=== PATIENT | female | born 1950 | race Caucasian/White ===

== ENCOUNTER 2016-12-03 15:48 | Inpatient (IN) | payer OTHER, MEDICARE ==
[~2016-12-03] VITALS: Ht 165.1 cm; Wt 81.6 kg
[~2016-12-03 15:48] MED LIST: CARA1SUS3 PO; CHOL50006; FLUT1SPR5 EACH NARE; LIDO2SOL11; MONT10TA2 PO; SIMP0.9A EACH NARE; SYNT112T PO; VITA100021 SL; VITA500T4 PO
[2016-12-04] MEDS ORDERED: ONDANSETRON HCL 4 MG/2 ML VIAL IV PUSH ONE (09:48)
[2016-12-04] MEDS ORDERED: PROPOFOL 200 MG/20 ML AMP IV ONE (09:48)
[2016-12-04] MEDS ORDERED: LACTATED RINGER'S 1000 ML INJ 3,000 ML IV ONE (09:48)
[2016-12-04 10:20] VITALS: BP 164/80; PULSE 84; RESP 20; TEMP 98; O2SAT 97
[2016-12-04] MEDS ORDERED: ACETAMINOPHEN 1000 MG/100 ML VIAL IV SCH (10:45)
[2016-12-04] MEDS ORDERED: METOPROLOL TARTRATE 25 MG TAB PO PRN (10:45)
[2016-12-04] MEDS ORDERED: LACTATED RINGER'S 1000 ML IV SCH (10:45)
[2016-12-04] MEDS ORDERED: ceFAZolin 2 GM PREMIX 50 ML IV SCH (10:45)
[2016-12-04] MEDS ORDERED: APREPITANT 40 MG CAP PO SCH (10:45)
[2016-12-04] MEDS ORDERED: metroNIDAZOLE 500 MG INJ 100 ML IV SCH (10:45)
[2016-12-04] MEDS ORDERED: ONDANSETRON HCL 4 MG/2 ML VIAL IV PUSH SCH (10:45)
[2016-12-04] MEDS ORDERED: SODIUM CHLORID 0.9% 500 ML IV SCH (10:45)
[2016-12-04] MEDS ORDERED: INSULIN HUMAN REGULAR 1,000 UNITS/10 ML VIAL SQ PRN (10:45)
[2016-12-04] MEDS ORDERED: BUPIVACAINE/EPINEPHRINE 0.25% PF 30 ML VIAL ONE (17:42)
[2016-12-04] MEDS ORDERED: DICLOFENAC SODIUM 37.5 MG/ML VIAL IV PUSH ONE (19:48)
[2016-12-04] MEDS ORDERED: NALOXONE HCL 0.4 MG/ML AMP IV PRN (20:00)
[2016-12-04] MEDS ORDERED: SODIUM CHLORIDE 0.9% FLUSH 5 ML FLUSH IVF PRN (20:00)
[2016-12-04] MEDS ORDERED: Post-op Orders (for Pharmacy) MISC XX ONE (20:00)
[2016-12-04] MEDS ORDERED: MORPHINE SULFATE 30 MG/30 ML PCA IV SCH (20:00)
[2016-12-04] MEDS ORDERED: DO NOT ADM ANY ANTICOAGULANT DRUGS XX PRN (20:14)
[2016-12-04] MEDS ORDERED: fentaNYL CITRATE 250 MCG/5 ML AMP ONE (20:25)
[2016-12-04] MEDS ORDERED: MORPHINE SULFATE 8 MG/ML INJ ONE (20:38)
[2016-12-04] MEDS ORDERED: *RESP: ALBUTEROL 2.5 MG/3 ML NEB (PRN) PERIprocedural Use ONLY NEB ONE (20:43)
[2016-12-04] MEDS: SODIUM CHLORIDE 0.9% FLUSH 5 ML FLUSH IVF SCH (21:00)
[2016-12-04] MEDS: metroNIDAZOLE 500 MG INJ 100 ML IV SCH (22:40)
[2016-12-04] MEDS: ONDANSETRON HCL 4 MG/2 ML VIAL IV PRN (23:37)
[2016-12-04] MEDS: PCA - TOTAL MG MORPHINE DELIVERED PER SHIFT SCH (23:52)
[2016-12-04] MEDS: SODIUM CHLOR 0.9% 1000 ML INJ 1,000 ML IV SCH (23:52)
[2016-12-05] VITALS (7 sets, daily range): BP systolic 112–143; BP diastolic 53–65; PULSE 61–77; RESP 14–20; TEMP 95.8–98.6; O2SAT 91–97
[2016-12-05] MEDS: ONDANSETRON HCL 4 MG/2 ML VIAL IV PRN ×2 (02:58→08:32)
[2016-12-05] MEDS: LEVOTHYROXINE SODIUM 112 MCG TAB PO SCH (04:54)
[2016-12-05] MEDS: SODIUM CHLOR 0.9% 1000 ML INJ 1,000 ML IV SCH ×3 (04:56→22:15)
[2016-12-05] MEDS: PCA - TOTAL MG MORPHINE DELIVERED PER SHIFT SCH (05:38)
[2016-12-05] MEDS: metroNIDAZOLE 500 MG INJ 100 ML IV SCH ×2 (06:00→13:57)
[2016-12-05] MEDS: SODIUM CHLORIDE 0.9% FLUSH 5 ML FLUSH IVF SCH ×2 (08:32→20:57)
[2016-12-05] MEDS ORDERED: SCOPOLAMINE 1.5 MG PATCH TD SCH (15:00)
--- NOTE | 2016-12-05 15:18 | HHI.PR ---
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
[2016-12-05] MEDS: ACETAMINOPHEN 325MG/HYDROcodone 7.5MG/15ML UDC PO PRN ×2 (15:22→20:56)
[2016-12-05] MEDS: ENOXAPARIN SODIUM 30 MG/0.3 ML SYRINGE SQ SCH (20:57)
[2016-12-06] VITALS: BP 119/59; PULSE 71; RESP 18; TEMP 97.3; O2SAT 94
[2016-12-06] MEDS: ACETAMINOPHEN 325MG/HYDROcodone 7.5MG/15ML UDC PO PRN ×4 (03:03→23:01)
[2016-12-06] MEDS: LEVOTHYROXINE SODIUM 112 MCG TAB PO SCH (05:29)
[2016-12-06] MEDS: SODIUM CHLORIDE 0.9% FLUSH 5 ML FLUSH IVF SCH ×2 (07:47→20:15)
[2016-12-06 08:00] VITALS: BP 116/65; PULSE 66; RESP 20; TEMP 96; O2SAT 95
[2016-12-06] MEDS: SODIUM CHLOR 0.9% 1000 ML INJ 1,000 ML IV SCH ×2 (11:57→20:15)
[2016-12-06 12:00] VITALS: BP 134/63; PULSE 72; RESP 16; TEMP 97.4; O2SAT 93
--- NOTE | 2016-12-06 15:03 | RADRPT ---
EXAM DATE/TIME: 12/06/2016 13:15 [facility] COMPARISON: No previous studies available for comparison. INDICATIONS: Short of breath & right upper quadrant pain. Post hiatal hernia repair surgery. MEDICAL HISTORY: Hiatal hernia. Gastroesophageal reflux disease. Hypothyroidism. Arthritis. SURGICAL HISTORY: Tonsillectomy. Hysterectomy. ENCOUNTER: Subsequent ACUITY: 2 days PAIN SCORE: 9/10 LOCATION: Chest FINDINGS: Extensive subcutaneous emphysema is present. Trace free air is present. There is minimal mediastina l air present. There is no alveolar consolidation. There is a trace pneumothorax on the left. Heart and pulmonary vascularity are normal. CONCLUSION: Abnormal chest. There is trace pneumothorax on the left with extensive subcutaneous air with trace a ir in diaphragm. Sami Jean MD FACR on December 06, 2016 at 13:56 Board Certified Radiologist. This report was verified electronically.
--- NOTE | 2016-12-06 15:24 | MP ---
cc: SHELBY MCKAY DATE OF SURGERY: 12/04/2016. PREOPERATIVE DIAGNOSIS: 1. Gastroesophageal reflux unresponsive to medical management. 2. Hiatal hernia. POSTOPERATIVE DIAGNOSIS: 1. Gastroesophageal reflux disease unresponsive to medical management. 2. Hiatal hernia. OPERATION: Robot-assisted laparoscopic repair of hiatal hernia with 270-degree fundoplication. SURGEON: Shelby Mckay MD. AIRPLANE AND ENGINE INSPECTOR: Jose Carlos Fair MD. ANESTHESIA: General endotracheal anesthesia. ESTIMATED BLOOD LOSS: Less than 50 cc. FINDINGS: Hiatal hernia. SPECIMENS: None. COMPLICATIONS: None. DESCRIPTION OF THE PROCEDURE IN DETAIL: The patient was brought to the operating room and placed on the operating room table in the supine position. Bilateral sequential inflation devices were placed on the lower extremities. General anesthesia was instituted. A Neal catheter was placed. Antibiotics initiated. The abdomen was prepped and draped sterilely. A 5 mm port was [id number] distal to the xiphoid just to the left of the midline. A 5 mm left upper quadrant port was placed. A robotic 8 mm left upper quadrant port, a robotic 8 mm right upper quadrant and a 5 mm right upper quadrant port was placed. The 5 mm epigastric port was switched out to a 12 mm port. Prior to placement of all ports, the skin and peritoneum were anesthetized with 0.25% Marcaine with epinephrine. The patient was then placed in reverse Trendelenburg position. The Zulema-Flex retractor was placed. The left lobe of the liver was retracted. The abdominal cavity was inspected with findings as above. Seven #0 silk sutures were placed into the upper abdomen as well as a [place] drain and Ray-Belia gauze. At this point, the laparoscopic tower was removed from the patient's bedside. The robot was then docked at the patient's bedside. I then broke scrub and went to the console. Attention was next focused on the patient's right. The hepatogastric ligament was opened. The right moni of the diaphragm was identified. It was dissected inferiorly from right to left. The Angle of His was then taken down. The left moni of the diaphragm was dissected inferiorly. The graspers were then placed from right to left. A [place] drain was then brought around the GE junction which was then retracted into the abdominal cavity. The moni of the diaphragm was then further dissected anteriorly and posteriorly. The distal esophagus was dissected in the mediastinum and brought into the abdominal cavity. The vasculature on the greater curve of the stomach was from the GE junction for a third of the distance of the greater curve of the stomach. Attention was then focused back on the crura of the diaphragm. The left and right vagus nerve was identified and preserved during the dissection. The hernia sac was excised. The moni of the diaphragm was approximated with #0 silk suture. Three interrupted [id number] stitches were placed inferiorly. The diaphragm came together without tension. A fundoplication was then created in the greater curvature of the stomach to the patient's right side around the lower esophagus the GE junction was created. The posterior stitch was placed to the diaphragm on the right side superiorly at the ten o'clock position. A stitch was placed from the esophagus to the crura of the diaphragm and to the stomach. Three additional interrupted stitches were placed from the esophagus to the stomach. On the left side of the esophagus, a one o'clock stitch was placed to the crura esophagus and the fundus of the stomach. Three additional interrupted stitches were placed to create a 270 degree wrap. The operative field was inspected. Hemostasis was assured. The robot was then undocked from the patient. The laparoscopic tower connected. The needles were removed from the abdominal cavity as well as the [place] and Ray-Belia gauze. The Zulema-Flex retractor was removed. The 10 mm port sites were approximated with #0 Vicryl suture using a fascial closure device. The C02 was then released. All ports were removed. All skin incisions were closed with 4-0 Monocryl. The abdominal wall was cleaned and a sterile dressing was placed. The patient was awakened and taken to the recovery room. All instruments and sponge and needle counts were reported as correct at the end of the procedure. MD ASHLEY Jaimes/ALICE /2:56 PM /3:09 PM MARIO
--- NOTE | 2016-12-06 15:28 | HHI.PR ---
Subjective Subjective Notes pt c/o pain abd Sob no chest pain Objective Vitals/I&O Vital Signs Date Time Temp Pulse Resp B/P Pulse Ox O2 Delivery O2 Flow Rate FiO2 12/06/16 12:00 97.4 72 16 134/63 93 12/05/16 07:50 21 12/04/16 23:35 Nasal Cannula 3 Abdomen: Post-op tenderness Extremities: Perfused Narrative Exam chest neck crepitus Wound Wound : Wound Location: Abdomen Appearance: Clean & Dry A/P Assessment and Plan S/P lap partial fundoplication with hiatal hernia repair POD#2 Sub Q emphysema better will check CXR advance diet to full liquids Delta Slade MD Dec 06, 2016 15:28
[2016-12-06 16:00] VITALS: BP 153/77; PULSE 79; RESP 16; TEMP 96.9; O2SAT 92
[2016-12-06 20:00] VITALS: BP 130/75; PULSE 79; RESP 20; TEMP 98.2; O2SAT 94
[2016-12-06] MEDS: ENOXAPARIN SODIUM 30 MG/0.3 ML SYRINGE SQ SCH (20:15)
[2016-12-07] VITALS: BP 120/66; PULSE 80; RESP 20; TEMP 98.1; O2SAT 93
[2016-12-07] MEDS: LEVOTHYROXINE SODIUM 112 MCG TAB PO SCH (05:55)
[2016-12-07] MEDS: ACETAMINOPHEN 325MG/HYDROcodone 7.5MG/15ML UDC PO PRN (05:55)
[2016-12-07] MEDS: SODIUM CHLOR 0.9% 1000 ML INJ 1,000 ML IV SCH (05:57)
--- NOTE | 2016-12-07 06:52 | RADRPT ---
EXAM DATE/TIME: 12/07/2016 05:59 [facility] COMPARISON: CHEST PA & LAT, December 06, 2016, 13:15. INDICATIONS : Shortness of breath. MEDICAL HISTORY : None. SURGICAL HISTORY : None. ENCOUNTER: Subsequent ACUITY: 2 days PAIN SCORE: Non-responsive. LOCATION: Bilateral chest FINDINGS: The lungs are symmetrically aerated. Patchy small areas of infiltrate in the lateral left lower lung and medial right lower lung similar to prior. The heart is normal in size. Again noted is subcutan eous emphysema in the supraclavicular region and about both breasts. CONCLUSION: Stable appearance to the patchy bilateral lower lung infiltrates and diffuse bilateral subcutaneous e mphysema. Troy Duong MD on December 07, 2016 at 6:50 Board Certified Radiologist. This report was verified electronically.
[2016-12-07 08:00] VITALS: BP 129/62; PULSE 86; RESP 17; TEMP 97.9; O2SAT 93
[2016-12-07] MEDS: SODIUM CHLORIDE 0.9% FLUSH 5 ML FLUSH IVF SCH (08:32)
[2016-12-07 12:00] VITALS: BP 127/67; PULSE 82; RESP 18; TEMP 98.3; O2SAT 94
--- NOTE | 2016-12-07 12:21 | HHI.DS ---
Discharge Summary Admission Date Dec 04, 2016 at 09:33 Discharge Date: Dec 07, 2016 Admitting Diagnosis (1) Hiatal hernia with GERD Diagnosis: Principal Procedures Lap hiatal hernia repair and toupet fundoplication Brief History 66 yo F with hiatal hernia and GERD not controlled with medical management. Manometry showed mild dysfunction of esophagus so full wrap was not performed. PE at Discharge Crepitus of neck and chest lungs ctab Abd mild distention, soft, ntd, inc c/d/i Hospital Course post op she developed crepitus of the face, neck, and chest. She had mild SOB. CXR showed SQ emphysema and small left PTX. SOB improved on day of discharge although SQ emphysema and small PTX still present. She tolerated fulls and pain is controlled. Pt Condition on Discharge: Good Discharge Disposition: Discharge Home Discharge Instructions DIET: Follow Instructions for: Full Liquid Diet Activities you can perform: See Additionl Instruction Other Activity Instructions: Ok to shower. Avoid strenuous activity. No driving while on narcotics. Follow up Referrals: Surgical with Delta Slade MD Continued Medications: Cyanocobalamin (Vitamin B-12) 1,000 Mcg Subl 1000 MCG SL DAILY Nutritional Supplement Ref 0 TAB.SL Fluticasone Nasal [place] (Flonase Allergy Relief Nasal [place]) 50 Mcg/Act [place] 100 MCG EACH NARE BID PRN ALLERGIES #1 Ref 0 BOTTLE Levothyroxine (Synthroid) 112 Mcg Tab 112 MCG PO DAILY Thyroid #30 Ref 0 TAB Lidocaine Viscous 2% Liq (Lidocaine Viscous 2% Liq) 2 % Liq DIRECTED PRN SORE THROAT Saline Nasal (Simply Saline Nasal) 0.90 % Aero 2 SPRAY EACH NARE BID BOTTLE Sucralfate Liq (Carafate Liq) 1 Gm/10 Ml Susp 1 GM PO HS on empty stomach Duodenal ulcer #1200 Ref 0 ML Discontinued Medications: Cholecalciferol (Vitamin D) 5,000 Unit Tab 4000 DAILY Jose Carlos Fair MD Dec 07, 2016 12:21
[2016-12-08] MEDS ORDERED: REMOVE OLD SCOPOLAMINE PATCH TD SCH (15:00)
== END 2016-12-07 14:33 | disposition home or self-care (01) | DRG 327 ==
LOC: HSDI 12-04 09:33 → N07B 12-05 00:27
PROVIDERS: ADMIT Surgery; ATTEND Surgery
PROC: 0BQR4ZZ (ICD-10-PCS; 2016-12-04)
PROC: 0BQS4ZZ (ICD-10-PCS; 2016-12-04)
PROC: 8E0W4CZ Robotic Assisted Procedure of Trunk Region, Percutaneous Endoscopic Approach (ICD-10-PCS; 2016-12-04)
PROC: 0DV44ZZ Restriction of Esophagogastric Junction, Percutaneous Endoscopic Approach (ICD-10-PCS; principal; 2016-12-04 16:44)
DX: K21.9 Gastro-esophageal reflux disease without esophagitis (principal); J95.811 Postprocedural pneumothorax; T81.82XA Emphysema (subcutaneous) resulting from a procedure, initial encounter; K44.9 Diaphragmatic hernia without obstruction or gangrene; K31.84 Gastroparesis; E55.9 Vitamin D deficiency, unspecified; E03.9 Hypothyroidism, unspecified; E78.5 Hyperlipidemia, unspecified; E66.3 Overweight; Z68.29 Body mass index [BMI] 29.0-29.9, adult; R73.03 Prediabetes; Z87.891 Personal history of nicotine dependence; M85.80 Other specified disorders of bone density and structure, unspecified site
CPT/HCPCS: 71010; 71020; 94150; 94664; J0131; J0690; J1130; J1650; J2270; J2405; J3010; J7030; J7120; J7613; J8501